=== PATIENT | male | born 1945 | race Caucasian/White ===

== ENCOUNTER 2020-03-08 09:47 | Emergency (ER) | payer MEDICARE, MEDICAID ==
[2020-03-08] MEDS ORDERED: Nitroglycerin 50 MG/250 ML BOT 250 ML ONE ×2 (10:37→10:45)
[2020-03-08] MEDS ORDERED: Sodium Chloride 0.9% 500 ML ONE (10:37)
[2020-03-08 11:31] LABS: #Basophils 0.1 thou/uL (0.0-0.2); #Eosinphils 0.5 thou/uL (0.0-0.7); #Monocytes 0.5 thou/uL (0.11-0.59); #Neutrophils 5.5 thou/uL (1.40-6.50); %Basophils 1.4 % (0.0-1.0); %Eosinophils 5.9 % (0.0-10.0); %Lymphocytes 22.7 % (21.0-51.0); %Monocytes 5.6 % (0.0-10.0); %Neutrophils 64.3 % (42.0-75.0); Hemoglobin 11.6 g/dL (14.0-18.0); Mean Corpuscular HGB CONC 33.7 g/dL (32.0-36.0); Mean Corpuscular Hemoglobin 29.8 pg (27.0-31.0); Mean Corpuscular Volume 88.4 fL (78.0-98.0); Mean Platelet Volume 11.4 fL (7.4-10.4); Platelet Count 122 thou/uL (130-400); RBC Distribution Width 12.3 % (11.5-14.5); Red Blood Cell (RBC) Count 3.89 mill/uL (4.70-6.10); White Blood Cell (WBC) Count 8.6 thou/uL (4.8-10.8)
--- NOTE | 2020-03-08 11:31 | RAD ---
SINGLE VIEW CHEST: Date: 03/08/2020 COMPARISON: None. HISTORY: Involuntary movement of the right arm that started yesterday. FINDINGS: Single view of the chest shows a normal sized cardiomediastinal silhouette. Increased interstitial rosendo ng markings are present. There is a slight increased area of increased density in the mid portion of the right thorax which could represent a small focal infiltrate. This could also represent the end of the rib. No pleural effusion is seen. Biapical pleural thickening is seen. IMPRESSION: Questionable right-sided infiltrate. POS: KYA
[2020-03-08 11:34] LABS: Lactic Acid 1.5 mmol/L (0.5-2.2)
[2020-03-08 11:38] LABS: Prothrombin Time 13.4 sec (12.0-14.7)
[2020-03-08 11:44] LABS: ALT (SGPT) 12 U/L (8-55); AST (SGOT) 17 U/L (5-34); Acetaminophen Less than 6.0 mcg/mL (10.0-30.0); Albumin 4.2 g/dL (3.4-4.8); Alcohol Less than 10 mg/dL (Less than 10); Alkaline Phosphatase 75 U/L (40-110); Anion Gap 16 mmol/L (10-20); BUN (Urea Nitrogen) 26 mg/dL (8.4-25.7); Bilirubin, Total 0.8 mg/dL (0.2-1.2); CK (CPK) 65 U/L (30-200); Calc. Creatinine Clearance 0 mL/min (70-130); Carbon Dioxide 24 mmol/L (23-31); Chloride 106 mmol/L (98-107); Estimated GFR-MDRD 29; Globulin 2.9 g/dL (2.4-3.5); Glucose 84 mg/dL (83-110); Lipase 19 U/L (8-78); Potassium 4.2 mmol/L (3.5-5.1); Protein, Total 7.1 g/dL (5.8-8.1); Salicylate Less than 8.0 mg/dL (15.0-30.0); Sodium 142 mmol/L (136-145)
[2020-03-08 11:59] LABS: CKMB 1.1 ng/mL (0-6.6)
[2020-03-08 12:10] LABS: Bilirubin Negative (Negative); Blood, Urine Negative (Negative); Clarity Clear (Clear); Glucose, Urine (Dipstick) Negative (Negative); Ketone, Urine Negative (Negative); Leukocyte Negative (Negative); Nitrite Negative (Negative); Protein, Urine (Dipstick) Trace mg/dL (Neg-Trace); Specific Gravity, Urine 1.015 (1.005-1.030); Urobilinogen 0.2 mg/dL (Less than 2)
[2020-03-08 12:25] LABS: Amphetamine Not Detected (NotDetected); Barbiturates Screen Not Detected (NotDetected); Benzodiazepine Screen Not Detected (NotDetected); Cocaine Metabolite Screen Not Detected (NotDetected); Medtox Control Line Valid? VALID (VALID); Methadone Not Detected (NotDetected); Methamphetamine Not Detected (NotDetected); Opiate Screen Not Detected (NotDetected); Oxycodone Screen Not Detected (NotDetected); Phencyclidine (PCP) Not Detected (NotDetected); THC/Cannabinoid Screen Not Detected (NotDetected); Tricyclic Screen Not Detected (NotDetected)
--- NOTE | 2020-03-08 12:27 | CT ---
CT BRAIN WITHOUT CONTRAST: HISTORY:Involuntary movement of right arm that started yesterday COMPARISON:None FINDINGS: There are foci of decreased attenuation in the periventricular white matter, consistent with chronic small vessel ischemic disease. 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 No evidence of acute infarct, hemorrhage, midline shift or abnormal extra-axial fluid collections is seen. The ventricular size is appropriate and the basilar cisterns are patent. The bony calvarium is intact. There is mucosal disease in the paranasal sinuses. IMPRESSION: No CT evidence of acute intracranial process.
[2020-03-08] MEDS ORDERED: Aspirin Chewable 81 MG TAB ONE (13:01)
[2020-03-08] MEDS ORDERED: Dextrose 5 %-0.45 % NaCl 1,000 ML ONE (13:01)
[2020-03-08] MEDS ORDERED: Multivit, Adult Inj 10 ML VIAL ONE (13:01)
[2020-03-08] MEDS ORDERED: Thiamine HCl 200 MG/2 ML VIAL ONE (13:01)
== END 2020-03-08 13:22 | disposition short-term general hospital (02) ==
LOC: MADERS 09:47
DX: G25.5 Other chorea (principal); I16.0 Hypertensive urgency; I10 Essential (primary) hypertension; E11.9 Type 2 diabetes mellitus without complications; F17.210 Nicotine dependence, cigarettes, uncomplicated; Z79.84 Long term (current) use of oral hypoglycemic drugs; Z79.899 Other long term (current) drug therapy
CPT/HCPCS: 36415; 70450; 71045; 80053; 80306; 80307; 81003; 82550; 82553; 83605; 83690; 83735; 84443; 84484; 85025; 85610; 85730; 96365; 96366; 96375; J3411; J7030; J7042

== ENCOUNTER 2020-04-08 14:38 | Emergency (ER) | payer MEDICARE, MEDICAID ==
[2020-04-08] MEDS ORDERED: Lisinopril 10 MG TAB ONE (15:14)
--- NOTE | 2020-04-08 15:39 | RAD ---
PA CHEST WITH RIGHT RIBS: 04/08/20 Total of five views. INDICATIONS: Fall with injury to right ribs. FINDINGS: Mildly displaced fractures of the posterolateral right 6th and 7th ribs. The right lung appears aerat ed and clear with no evidence of pneumothorax. There is slight deformity involving lateral right 9th rib on one of the oblique views. This suggests an old healed fracture. The PA chest is otherwise unremarkable with no evidence of lung infiltrate or effusion. Heart and mediastinum unremarkable. The PA chest is otherwise unremarkable with no evidence of lung infiltrate or effusion. Heart and med iastinum unremarkable. IMPRESSION: Evidence of acute fractures of the posterolateral right 6th and 7th ribs. POS: AGW
[2020-04-08] MEDS ORDERED: Acetaminophen 325 MG TAB ONE (15:42)
[2020-04-08] MEDS ORDERED: HYDROcodone/Acetaminophen 5/325 mg Tablet ONE (15:42)
== END 2020-04-08 15:52 | disposition home or self-care (01) ==
LOC: MADERS 14:38
DX: S22.41XA Multiple fractures of ribs, right side, initial encounter for closed fracture (principal); I10 Essential (primary) hypertension; E11.9 Type 2 diabetes mellitus without complications; F17.210 Nicotine dependence, cigarettes, uncomplicated; Z79.899 Other long term (current) drug therapy; Z79.84 Long term (current) use of oral hypoglycemic drugs; W18.30XA Fall on same level, unspecified, initial encounter

== ENCOUNTER 2020-04-10 09:33 | Emergency (ER) | payer MEDICARE, MEDICAID ==
[~2020-04-10 09:33] MED LIST: Sodium Chloride 0.9% 100 ML BAG ONE
[2020-04-10] MEDS ORDERED: Labetalol HCl 100 MG/20 ML VIAL ONE (09:37)
[2020-04-10] MEDS ORDERED: Sodium Chloride 0.9% 100 ML ONE (09:37)
[2020-04-10] MEDS ORDERED: niCARdipine 20MG In NaCl 20 MG/200 ML BAG ONE (09:41)
[2020-04-10 10:06] LABS: #Basophils 0.1 thou/uL (0.0-0.2); #Eosinphils 0.3 thou/uL (0.0-0.7); #Lymphocytes 1.1 thou/uL (1.20-3.40); #Monocytes 0.5 thou/uL (0.11-0.59); #Neutrophils 11.6 thou/uL (1.40-6.50); %Basophils 0.6 % (0.0-1.0); %Eosinophils 2.1 % (0.0-10.0); %Monocytes 3.8 % (0.0-10.0); %Neutrophils 85.5 % (42.0-75.0); Hemoglobin 10.4 g/dL (14.0-18.0); Mean Corpuscular HGB CONC 33.8 g/dL (32.0-36.0); Mean Corpuscular Hemoglobin 30.1 pg (27.0-31.0); Mean Corpuscular Volume 89.2 fL (78.0-98.0); Mean Platelet Volume 8.3 fL (7.4-10.4); Platelet Count 145 thou/uL (130-400); RBC Distribution Width 11.8 % (11.5-14.5); Red Blood Cell (RBC) Count 3.44 mill/uL (4.70-6.10); White Blood Cell (WBC) Count 13.6 thou/uL (4.8-10.8)
--- NOTE | 2020-04-10 10:08 | CT ---
CT head noncontrast HISTORY: Altered mental status. Weakness. FINDINGS: There is no evidence of acute intracranial hemorrhage or infarct. Small foci of decreased d ensity within the basal ganglia bilaterally correlate with lacunar infarcts 03/09/2020 MRI exam. Chronic ischemic small vessel disease again demonstrated throughout the periventricular white matter of each cerebral hemisphere. There is no mass effect or shift of midline structures. Mild mucosal thickening within the right posterior ethmoid air cells and right maxillary sinus. IMPRESSION : Chronic-type findings are stable. No acute intracranial abnormalities are demonstrated.
[2020-04-10 10:15] LABS: INR-International Normal Ratio 1.2; PTT 33.2 sec (22.9-36.1); Prothrombin Time 15.3 sec (12.0-14.7)
[2020-04-10] MEDS ORDERED: Aspirin Chewable 81 MG TAB ONE (10:19)
--- NOTE | 2020-04-10 10:22 | CT ---
EXAM: CT ANGIOGRAM OF THE HEAD AND NECK INDICATION: Stroke COMPARISON: None TECHNIQUE: CT angiogram of the head and neck are performed in the axial plane. Three-dimensional refo rmatted images are submitted for interpretation. FINDINGS: CTA OF THE HEAD WITH AND WITHOUT CONTRAST: POSTCONTRAST CT OF BRAIN: Pathologic enhancement: No pathologic enhancement the brain. Postcontrast soft tissue neck CT: Aerodigestive tract:Aerodigestive tract is patent. No mucosal abnormality. Sinuses: Mild mucosal thickening of the right maxillary sinus and right sphenoid sinus. Orbits: Bilateral ocular lenses are appropriately located. Both globes are intact. Retrobulbar fat is preserved. Symmetric attenuation the optic nerves and ocular rectus muscles. Salivary glands:Symmetric attenuation of the parotid and submandibular glands. Thyroid gland: Heterogeneous hypodensity in the left thyroid lobe measuring 1 cm, incompletely evalua zena. Lymph nodes: No evidence of lymphadenopathy by size criteria. Paraspinal muscles: Symmetric attenuation of the sternocleidomastoid muscles. Appropriate attenuation of the paraspinal muscles. Cervical spine:Vertebral body height is maintained. No fracture. No significant central canal stenosi s or significant neural foraminal narrowing. Limited evaluation by technique. Upper mediastinum and lung apices: Chronic changes in the lung parenchyma. Mild emphysematous changes and scarring. CTA OF THE NECK WITH CONTRAST: Aorta: The aortic arch is not included on this exam. Evaluation of the origin of the great vessels of the neck is limited. Right carotid artery: Visualized right carotid artery has appropriate enhancement and luminal diamete r. No significant stenosis based upon NASCET criteria. There is calcified and noncalcified plaque in the right carotid bifurcation and proximal internal carotid artery. Left carotid: Visualized left carotid artery has appropriate enhancement and luminal diameter. No sig nificant stenosis based upon NASCET criteria. There is calcified and noncalcified plaque left carotid bifurcation and proximal internal carotid artery. Subclavian arteries:Mild atherosclerosis in the proximal left subclavian artery. Vertebral arteries:Patent throughout their course in the neck. Dominant right vertebral artery. CTA OF THE BRAIN: Intracranial internal carotid arteries:Atherosclerosis in both cavernous carotid segments. Anterior circulation: Symmetric enhancement and luminal diameter of the M1 segments and proximal MCA branches. Slightly diminutive right A1 segment likely congenital variant. Appropriate enhancement of proximal A2 segments. Intracranial vertebral arteries: Patent. Visualized PICA artery origins are grossly unremarkable. Posterior circulation: Both vertebral arteries supply normal caliber basilar artery. No significant s tenosis. Right [employer]OR has a origin. Left P1 segment has appropriate enhancement and luminal diameter. IMPRESSION: 1. No hemodynamically significant stenosis, occlusion or aneurysmal formation. 2. Additional findings as above. Results of study conveyed to Dr. Kaur on 04/10/2020 at 10:22 AM Code CR Transcribed Date/Time: 04/10/2020 11:27 AM
[2020-04-10 10:24] LABS: Acetaminophen Less than 6.0 mcg/mL (10.0-30.0); CK (CPK) 14 U/L (30-200); Salicylate Less than 8.0 mg/dL (15.0-30.0)
[2020-04-10 10:26] LABS: ALT (SGPT) 7 U/L (8-55); AST (SGOT) 10 U/L (5-34); Albumin 3.3 g/dL (3.4-4.8); Alkaline Phosphatase 63 U/L (40-110); Anion Gap 12 mmol/L (10-20); BUN (Urea Nitrogen) 34 mg/dL (8.4-25.7); Bilirubin, Total 0.6 mg/dL (0.2-1.2); Calc. Creatinine Clearance 0 mL/min (70-130); Calcium 8.1 mg/dL (7.8-10.44); Carbon Dioxide 24 mmol/L (23-31); Chloride 108 mmol/L (98-107); Estimated GFR-MDRD 30; Globulin 2.4 g/dL (2.4-3.5); Glucose 112 mg/dL (83-110); Protein, Total 5.7 g/dL (5.8-8.1); Sodium 140 mmol/L (136-145)
[2020-04-10 10:39] LABS: Alcohol Less than 10 mg/dL (Less than 10)
--- NOTE | 2020-04-10 11:03 | RAD ---
PORTABLE CHEST: Date: 04/10/2020 INDICATION: CVA. Comparison made to portable chest exam dated 03/08/2020. FINDINGS: There is a focal density in the right mid lung which was noted on the prior exam and described as a p ossible infiltrate. This shows no significant change and an underlying pulmonary mass or nodule shoul d be excluded. No infiltrate. No evidence of vascular congestion or significant effusion. Heart size normal. IMPRESSION: Persistent nodular density in the right mid lung. Recommend further evaluation with elective follow-u p chest CT. CODE T. CODE LN.
[2020-04-10] MEDS ORDERED: Iopamidol 370 76% 125 ML VIAL FS ONE (12:26)
== END 2020-04-10 10:31 | disposition short-term general hospital (02) ==
LOC: MADERS 09:33
DX: G45.9 Transient cerebral ischemic attack, unspecified (principal); I16.1 Hypertensive emergency; I10 Essential (primary) hypertension; E11.9 Type 2 diabetes mellitus without complications; F17.210 Nicotine dependence, cigarettes, uncomplicated; Z79.84 Long term (current) use of oral hypoglycemic drugs; Z79.899 Other long term (current) drug therapy
CPT/HCPCS: 70450; 70496; 70498; 71045; 80053; 80307; 82550; 84443; 84484; 85025; 85610; 85730; 93005; 96365; J3490; Q9967